=== PATIENT | female | born 1990 | race Native Hawaiian/Other Pacific Islander ===

== ENCOUNTER 2016-04-30 16:30 | Emergency (ER) | payer OTHER ==
[~2016-04-30] VITALS: Ht 157.5 cm; Wt 72.6 kg
[2016-04-30 17:37] LABS: BASO % 0.4 % (0.0-1.0); EOS # 0.1 K/mm3 (0.0-0.50); LARGE UNSTAINED CELL # 0.1 K/mm3 (0.0-0.4); LARGE UNSTAINED CELL % 1.4 % (0.0-4.0); LYMPH # 1.5 K/mm3 (1.5-6.5); LYMPH % 15.2 % (24.0-44.0); MEAN CORPUSCULAR HEMOGLOBIN 31.4 pg (27.0-33.0); MEAN CORPUSCULAR HGB CONC 32.8 g/dl (32.0-36.5); MEAN CORPUSCULAR VOLUME 95.5 fl (80.0-96.0); MONO # 0.7 K/mm3 (0.0-0.8); MONO % 6.6 % (0.0-5.0); NEUTROPHILS # 7.6 K/mm3 (1.8-7.7); NEUTROPHILS % 75.5 % (36.0-66.0); PLATELET COUNT, AUTOMATED 269 k/mm3 (150-450); RED CELL DISTRIBUTION WIDTH 12.7 % (11.5-14.5)
[2016-04-30 18:01] LABS: ALBUMIN 3.2 GM/DL (3.2-5.2); ALBUMIN/GLOBULIN RATIO 0.84 (1.00-1.93); ALKALINE PHOSPHATASE 61 U/L (45-117); ALT/SGPT 24 U/L (12-78); AMYLASE 73 U/L (25-115); ANION GAP 9 MEQ/L (8-16); AST/SGOT 16 U/L (15-37); BILIRUBIN,DIRECT < 0.1 MG/DL (0.0-0.2); BILIRUBIN,TOTAL 0.2 MG/DL (0.2-1.0); BLOOD UREA NITROGEN 7 MG/DL (7-18); CALCIUM LEVEL 8.6 MG/DL (8.5-10.1); CARBON DIOXIDE LEVEL 24 MEQ/L (21-32); CHLORIDE LEVEL 106 MEQ/L (98-107); CREATININE FOR GFR 0.53 MG/DL (0.55-1.02); GLOMERULAR FILTRATION RATE > 60.0 (>60); GLUCOSE, FASTING 83 MG/DL (70-105); POTASSIUM SERUM 4.1 MEQ/L (3.5-5.1); SODIUM LEVEL 139 MEQ/L (136-145)
[2016-04-30 18:04] LABS: INR 1.1
[2016-04-30] MEDS ORDERED: PRENTAB16 PO (18:25)
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
== END 2016-04-30 19:00 | disposition admitted as inpatient to this hospital (09) ==
LOC: M ED 16:30
DX: O26.892 Other specified pregnancy related conditions, second trimester (principal); R10.30 Lower abdominal pain, unspecified; V47.5XXA Car driver injured in collision with fixed or stationary object in traffic accident, initial encounter; Y92.410 Unspecified street and highway as the place of occurrence of the external cause; Y93.89 Activity, other specified; Y99.8 Other external cause status; Z79.899 Other long term (current) drug therapy; Z3A.24 24 weeks gestation of pregnancy; O99.342 Other mental disorders complicating pregnancy, second trimester; F33.9 Major depressive disorder, recurrent, unspecified

== ENCOUNTER 2016-04-30 19:07 | Outpatient (CLI) | payer OTHER ==
[~2016-04-30] VITALS: Ht 157.5 cm; Wt 73.0 kg
[~2016-04-30 19:07] MED LIST: PRENTAB16 PO
[2016-04-30 19:26] VITALS: BP 129/84
[2016-05-01] MEDS ORDERED: LR 1,000 ML IV SCH (00:15)
[2016-05-01] MEDS: ACETAMINOPH W/CODEINE #3 TAB UD PO PRN ×2 (00:23→05:34)
[2016-05-01] MEDS: CYCLOBENZAPRINE 10 MG TAB PO SCH ×2 (05:26→08:00)
[2016-05-01 07:15] VITALS: BP 141/83
[2016-05-01 09:13] LABS: MEAN CORPUSCULAR HEMOGLOBIN 31.6 pg (27.0-33.0); MEAN CORPUSCULAR HGB CONC 33.1 g/dl (32.0-36.5); MEAN CORPUSCULAR VOLUME 95.3 fl (80.0-96.0); RED CELL DISTRIBUTION WIDTH 12.9 % (11.5-14.5); WHITE BLOOD COUNT 10.8 K/mm3 (4.0-10.0)
[2016-05-01 09:33] LABS: INR 1.03
[2016-05-01 11:55] VITALS: BP 123/70
[2016-05-01 14:29] VITALS: BP 115/53
== END 2016-05-01 15:55 | disposition home or self-care (01) ==
LOC: M LDO 19:07
PROVIDERS: ATTEND Obstetrics & Gynecology
DX: O26.892 Other specified pregnancy related conditions, second trimester (principal); R10.30 Lower abdominal pain, unspecified; Z3A.24 24 weeks gestation of pregnancy; O99.342 Other mental disorders complicating pregnancy, second trimester; F33.9 Major depressive disorder, recurrent, unspecified

== ENCOUNTER 2016-08-08 03:41 | Outpatient (CLI) | payer OTHER ==
[~2016-08-08] VITALS: Ht 157.5 cm; Wt 79.0 kg
[2016-08-08 03:55] VITALS: BP 125/78
[2016-08-08 04:50] VITALS: BP 107/58
== END 2016-08-08 05:00 | disposition home or self-care (01) ==
LOC: M LDO 03:41
PROVIDERS: ATTEND Student in an Organized Health Care Education/Training Program
DX: O47.1 False labor at or after 37 completed weeks of gestation (principal); Z3A.38 38 weeks gestation of pregnancy

== ENCOUNTER 2016-08-17 09:12 | Inpatient (IN) | payer OTHER ==
[~2016-08-17] VITALS: Ht 157.5 cm; Wt 82.0 kg
[2016-08-17] MEDS ORDERED: COLA100C3 PO (12:35)
[2016-08-17] MEDS ORDERED: OMEP40CA2 PO (12:35)
[2016-08-17 13:17] VITALS: BP 130/82
[2016-08-17 13:30] LABS: MEAN CORPUSCULAR HGB CONC 33.5 g/dl (32.0-36.5); MEAN CORPUSCULAR VOLUME 95.5 fl (80.0-96.0); RED CELL DISTRIBUTION WIDTH 13.1 % (11.5-14.5); WHITE BLOOD COUNT 11.8 K/mm3 (4.0-10.0)
[2016-08-17 14:23] VITALS: BP 116/71
[2016-08-17] MEDS: LR 1,000 ML IV SCH (17:00)
[2016-08-17] MEDS ORDERED: BUTORPHANOL 2 MG/ML INJ (J0595) IV ONE (21:15)
[2016-08-17] MEDS ORDERED: PROMETHAZINE INJ 25 MG/ML VIAL (J2550) IV ONE (21:15)
[2016-08-18] VITALS (9 sets, daily range): BP systolic 56–149; BP diastolic 56–80
[2016-08-18] MEDS ORDERED: OXYTOCIN DRIP 30 UNITS in APPROPRIATE DILUENT 1 EA IV SCH (01:30)
[2016-08-18] MEDS: LR 1,000 ML IV SCH (01:41)
[2016-08-18] MEDS ORDERED: METHYLERGONOVINE MALEATE 0.2 MG TAB PO PRN (08:30)
[2016-08-18] MEDS ORDERED: DIBUCAINE 1% OINTMENT 30GM TOP PRN (08:30)
[2016-08-18] MEDS ORDERED: DOCUSATE SODIUM 100 MG CAP PO PRN (08:30)
[2016-08-18] MEDS ORDERED: MEASLES,MUMPS,RUBELLA VACCINE INJ (MMR-II) (90707) SC SCH (08:30)
[2016-08-18] MEDS ORDERED: ANUSOL HC CREAM 30GM TOP PRN (08:30)
[2016-08-18] MEDS ORDERED: MOM 30ML SUSPENSION UDC PO PRN (08:30)
[2016-08-18] MEDS ORDERED: RHOGAM 300 MCG (1500 IU) INJ (J2790) IM SCH (08:30)
[2016-08-18] MEDS ORDERED: ACETAMINOPHEN 500 MG TAB PO PRN (08:30)
[2016-08-18 08:44] LABS: CORD GAS ABE A -6.2; CORD GAS HCO3 A 22.3 MEQ/L; CORD GAS O2 SAT A 21.4 %; CORD GAS PCO2 A 56.2 mmHg; CORD GAS PH A 7.217 UNITS; CORD GAS PO2 A 15.3 mmHg; CORD GAS SBC A 17.7 MEQ/L; CORD GAS TCO2 A 24.1 MEQ/L
[2016-08-18 08:47] LABS: CORD GAS ABE V -5.6; CORD GAS HCO3 V 21.2 MEQ/L; CORD GAS O2 SAT V 52.2 %; CORD GAS PCO2 V 45.9 mmHg; CORD GAS PH V 7.282 UNITS; CORD GAS SBC V 18.8 MEQ/L; CORD GAS TCO2 V 22.6 MEQ/L
[2016-08-18] MEDS: PRENATAL VITAMIN TAB PO SCH (09:00)
[2016-08-18] MEDS ORDERED: OXYTOCIN INJ 10 UNITS/ML VIAL (J2590) IM ONE (12:00)
[2016-08-18] MEDS: IBUPROFEN 800 MG TAB PO PRN (16:17)
[2016-08-19 05:28] VITALS: BP 135/70
[2016-08-19 06:28] LABS: MEAN CORPUSCULAR HEMOGLOBIN 32.3 pg (27.0-33.0); MEAN CORPUSCULAR HGB CONC 33.7 g/dl (32.0-36.5); MEAN CORPUSCULAR VOLUME 95.8 fl (80.0-96.0); RED CELL DISTRIBUTION WIDTH 13.2 % (11.5-14.5); WHITE BLOOD COUNT 13.5 K/mm3 (4.0-10.0)
[2016-08-19] MEDS: PRENATAL VITAMIN TAB PO SCH (08:13)
--- NOTE | 2016-08-19 12:32 | IPN ---
DATE: 08/19/2016 This lady was admitted for induction of labor at 39 and 4 weeks of gestation, oligohydramnios. Had a female infant, 7 pounds 1 ounce, 3202 grams, scores of 9 and 9 at 1 and 5 minutes, respectively. Arterial pH was 7.21, base excess -6.2. Venous pH 7.28, base excess -5.6. Her admitting hemoglobin was 13.4, hematocrit 40.1 and platelets 270. day hemoglobin 11.6, hematocrit 34.4, and platelets are 196. Today, she is doing well. Breast-feeding is going well. Mobilized, passing gas, voiding. Blood pressure 135/70, respirations 16, pulse 91, temperature 98.3. We discussed phlebitis, cystitis, mastitis, endometritis, cellulitis, diet, exercise, pain management, perineal, breast and wound care. She is planning on using oral contraceptives. Her medications were given to her prior to discharge. The rest of the examination is normal. She is normocephalic, atraumatic. Neck with full range of motion. Pupils equal and reactive to light. Chest is clear bilaterally at the bases. No wheezes or rhonchi. No costovertebral angle tenderness. Uterus two below. Lochia is moderate. Four quadrant bowel sounds are noted. No rashes, lesions or pruritus. No arthralgia, myalgia. No complaints of cough, wheezes, shortness of breath or dyspnea on exertion. No chest pain. No bleeding. Neuro complete. No urgency or frequency. No incontinence. No nausea, vomiting, diarrhea or constipation. No diabetic issues. No HAMMER DRIVER, past medical or surgical issues. She does not smoke or drink. She does not abuse drugs. There is no domestic violence. In summary, we have a term gestation, delivered a live female. Planning on discharge tomorrow. Medications were given.
[2016-08-19] MEDS: IBUPROFEN 800 MG TAB PO PRN (16:05)
[2016-08-19 18:05] VITALS: BP 134/75
[2016-08-20 05:39] VITALS: BP 142/72
--- NOTE | 2016-08-20 07:49 | IPNPDOC ---
Progress Note Date of Service The patient was seen on 08/20/16 at 07:43. Progress Note PPD # 2 s/p of male infant 7 lbs 1 oz. Doing well. S: Reports she is feeling better and cramping and bleeding are decreasing. Denies FELICIANO, SOB, CP, f/c/n/v. Tolerating a regular diet. Voiding without difficulty, +flatus, Pt changed alfa-pad 4 times overnight with only a small amt of bleeding on the pad each time. Denies breast sx. Pt is ambulating without difficulty. States is going well. O: A&O x 3, VS WNL, afebrile, HR RRR, no m/r/g, Lungs CTA, abdomen soft NTTP, fundus firm @ U-1 without tenderness. No edema in bilat LE A: 25 yo G1 n P1001 s/p doing well PPD #2. P: Continue routine PP care as appropriate Ambulate Q 1 hour while awake Discharge home today Continue to assist with as needed Strict pelvic rest for 6-8 weeks Plan NOR Qd for BC, understands it will be ordered at 6 wk PP visit and she must be IC free for 2 wks prior to starting Regular diet Motrin and Tylenol PRN for discomfort VS, I&O, 24H, Fishbone Vital Signs/I&O Vital Signs Date Time Temp Pulse Resp B/P (MAP) Pulse Ox O2 Delivery O2 Flow Rate FiO2 08/20/16 05:39 98.0 99 18 142/72 (95) 08/18/16 10:40 96 Room Air IVELISSE ROA CNM Aug 20, 2016 07:49
[2016-08-20] MEDS: PRENATAL VITAMIN TAB PO SCH (07:52)
[2016-08-20] MEDS ORDERED: IBUP-1114 PO (09:19)
[2016-08-20] MEDS ORDERED: ACET50TA PO (09:19)
--- NOTE | 2016-09-03 11:57 | DN ---
DATE: 08/18/2016 This lady is a 25-year-old 1, para 0 admitted for induction of labor because of oligohydramnios at 39-4/7 weeks of gestation. She had no anesthesia, no episiotomy and had a spontaneous vaginal delivery, female, 7 pounds 1 ounce, 3202 grams, scores of 9 and 9 at one and five minutes respectively. Arterial pH 7.21, base excess -6.2, venous pH 7.28, base excess -5.6. The uterus contracted well under Pitocin. The vagina was examined. No evidence of tears, lacerations or extension. Sphincter was intact. Mother and baby tolerated procedure well.
== END 2016-08-20 13:55 | disposition home or self-care (01) | DRG 775 ==
LOC: M LDO 09:12 → M LDI 11:30 → M OBS 08-18 10:35
PROVIDERS: ADMIT Obstetrics & Gynecology; ATTEND Obstetrics & Gynecology
PROC: 10E0XZZ Delivery of Products of Conception, External Approach (ICD-10-PCS; principal; 2016-08-18)
DX: O41.03X0 Oligohydramnios, third trimester, not applicable or unspecified (principal); Z37.0 Single live birth; Z3A.39 39 weeks gestation of pregnancy

== ENCOUNTER 2020-06-30 10:46 | Emergency (ER) | payer OTHER ==
[~2020-06-30] VITALS: Ht 157.5 cm; Wt 80.5 kg
[~2020-06-30 10:46] MED LIST changes: +COLA100C5 PO; +IBUP-1114 PO; +MAPA500T2 PO; +OMEP40CA97 PO
[2020-06-30] MEDS ORDERED: PANT40TA29 PO (11:06)
[2020-06-30] MEDS ORDERED: CELE1CAP9 PO (11:06)
[2020-06-30] MEDS ORDERED: SUCR1TA PO ×2 (11:06→13:03)
[2020-06-30] MEDS ORDERED: NEUR300C PO (11:06)
[2020-06-30] MEDS ORDERED: GI COCKTAIL 50ML BTL(HYOSCYAMINE/MAALOX/LIDOCAINE VISCOUS)(1:3:1) PO ONE (12:05)
[2020-06-30] MEDS ORDERED: LIDO2SOL17 PO (13:03)
[2020-06-30] MEDS ORDERED: PERC5TAB12 PO (13:03)
[2020-06-30 13:13] VITALS: BP 121/61
[2020-07-05] MEDS ORDERED: SYNT25TA (11:40)
[2020-07-05] MEDS ORDERED: PRIL20TA2 (11:40)
[2020-07-05] MEDS ORDERED: APAP325T4 PO (11:45)
[2020-07-05] MEDS ORDERED: NEXP1IMP SC (11:54)
== END 2020-06-30 13:14 | disposition home or self-care (01) ==
LOC: M ED 10:46
DX: K29.60 Other gastritis without bleeding (principal); F33.9 Major depressive disorder, recurrent, unspecified; K21.9 Gastro-esophageal reflux disease without esophagitis; Z79.899 Other long term (current) drug therapy